=== PATIENT | female | born 1975 | race Caucasian/White ===

== ENCOUNTER 2025-02-02 12:41 | Emergency (ER) | payer BC, SELFPAY ==
[2025-02-02 12:42] VITALS: BMI 36.0
[2025-02-02 12:44] VITALS: BP 139/79
[2025-02-02 13:00] VITALS: BP 166/89
[2025-02-02 13:05] LABS: % Basophils 0.5 % (0-2); % Eosinophils 2.7 % (0-6); % Immature Granulocytes 0.4 % (0-0.5); % Lymphocytes 9.9 % (20.5-51.1); % Monocytes 2.8 % (1.7-9.3); % Neutrophils 83.7 % (42.2-75.2); Absolute Basophils 0.1 10^3/uL (0-0.2); Absolute Eosinophils 0.4 10^3/uL (0-0.7); Absolute Immature Granulocytes 0.1 10^3/uL (0-0.05); Absolute Lymphocytes 1.3 10^3/uL (1.2-3.4); Absolute Monocytes 0.4 10^3/uL (0.1-0.6); Absolute Neutrophils 11.3 10^3/uL (1.4-6.5); Hematocrit 37.4 % (37.0-47.0); Mean Corp Hgb Conc. 34.8 g/dL (33.0-37.0); Mean Corpuscular Hgb 29.9 pg (27.0-31.0); Nucleated Red Blood Cells % 0 %; Platelet Count 302 10^3/uL (130-400); Red Blood Cell Count 4.35 10^6/uL (4.20-5.40); Red Cell Dist. Width 12.7 % (11.5-14.5); White Blood Cell Count 13.5 10^3/uL (4.8-10.8)
--- NOTE | 2025-02-02 13:14 | ED.GENMED ---
History of Present Illness
<Anthony Kendall, DO - Last Filed: 02/03/25 08:22>
General
Chief Complaint: Chest Pain
Source: patient
Exam Limitations: none
Time Seen by Provider: 02/02/25 13:00
Nursing documentation reviewed up to this point in time: agreed with
History of Present Illness
History of Present Illness:
Note:
CHIEF COMPLAINT(S)
Pain upon inhalation.
HISTORY OF PRESENT ILLNESS
The patient is a 49-year-old female with a history of polycystic ovary syndrome (PCOS) who presents with pain localized to the left clavicle region, described as occurring during inhalation. The onset of symptoms was earlier today during transport
to the operating room for planned surgical intervention to repair a rotator cuff tear. Prior to symptom onset, a nerve block was administered to the patients right shoulder by an anesthesiologist at a surgical center. The patient reports the pain
began post-procedure and is associated with the inhalation activity.
MEDICATIONS
- Norethindrone, off-label, for control associated with PCOS.
- Spironolactone, for blood pressure management.
- Nebivolol, for hypertension.
PHYSICAL EXAM
General: no apparent distress, not acutely ill
Neck: supple. no meningeal signs. normal posterior pharynx
Heart: s1/s2 regular rate and rhythm, no murmur. equal radial
pulses.
HEENT: Pupils equal round reactive to light, EOMI
Lungs: no acute respiratory distress. clear bilaterally
Abdomen: normal bowel sounds. not tender. no CVAT
Neuro: alert and oriented. no focal neurological deficits cranial nerves II through XII intact
Skin: no rash
Psychiatric: well kept. interactive and cooperative
Extremities: no edema. no calf tenderness. negative homans. good distal pulses patient wearing sling
DIFFERENTIAL DIAGNOSIS
The Differential Diagnosis includes, in no particular order and is not limited to:
- Pulmonary embolism
- Pneumothorax
- Pleurisy
- Costochondritis
- Anxiety-related hyperventilation
- Musculoskeletal pain
- Diaphragmatic irritation
- Rib fracture
- Atelectasis
- Nerve block side effect
Note:
CARE-UPDATE
02/02/25 - 15:45
Patients chest symptoms showing improvement. D-dimer levels mildly elevated. Chest CT pending to rule out pulmonary embolism. Repeat troponin levels pending. If both results are negative, plan for discharge home with follow-up care with primary
physician.
<Jared Hood, DO - Last Filed: 02/02/25 17:35>
History of Present Illness
History of Present Illness:
Note:
CHIEF COMPLAINT(S)
Pain upon inhalation.
HISTORY OF PRESENT ILLNESS
The patient is a 49-year-old female with a history of polycystic ovary syndrome (PCOS) who presents with pain localized to the left clavicle region, described as occurring during inhalation. The onset of symptoms was earlier today during transport
to the operating room for planned surgical intervention to repair a rotator cuff tear. Prior to symptom onset, a nerve block was administered to the patients right shoulder by an anesthesiologist at a surgical center. The patient reports the pain
began post-procedure and is associated with the inhalation activity.
MEDICATIONS
- Norethindrone, off-label, for control associated with PCOS.
- Spironolactone, for blood pressure management.
- Nebivolol, for hypertension.
PHYSICAL EXAM
General: no apparent distress, not acutely ill
Neck: supple. no meningeal signs. normal posterior pharynx
Heart: s1/s2 regular rate and rhythm, no murmur. equal radial
pulses.
HEENT: Pupils equal round reactive to light, EOMI
Lungs: no acute respiratory distress. clear bilaterally
Abdomen: normal bowel sounds. not tender. no CVAT
Neuro: alert and oriented. no focal neurological deficits cranial nerves II through XII intact
Skin: no rash
Psychiatric: well kept. interactive and cooperative
Extremities: no edema. no calf tenderness. negative homans. good distal pulses patient wearing sling
DIFFERENTIAL DIAGNOSIS
The Differential Diagnosis includes, in no particular order and is not limited to:
- Pulmonary embolism
- Pneumothorax
- Pleurisy
- Costochondritis
- Anxiety-related hyperventilation
- Musculoskeletal pain
- Diaphragmatic irritation
- Rib fracture
- Atelectasis
- Nerve block side effect
Note:
CARE-UPDATE
02/02/25 - 15:45
Patients chest symptoms showing improvement. D-dimer levels mildly elevated. Chest CT pending to rule out pulmonary embolism. Repeat troponin levels pending. If both results are negative, plan for discharge home with follow-up care with primary
physician.
1731 CTA shows no evidence of PE repeat troponin negative. The patient does have what radiology questions as pneumonia on CT. She does have a mild white count. She has no cough or fevers but given her white count shared decision making with the
patient was performed and we will proceed with covering her with Augmentin. She will follow-up with her PCP as well as orthopedics. I did recommend a repeat chest x-ray upon the completion of her antibiotics
Phy Exam
<Anthony Kendall, DO - Last Filed: 02/03/25 08:22>
Physical Exam
Physical Exam:
.
Scores
<Anthony Kendall, DO - Last Filed: 02/03/25 08:22>
Heart Score for Chest Pain Patients
STEMI patient?: No
History: Slightly or Non-Suspicious
ECG: Normal
Age: >45 - <65 years
Risk Factors: No Risk Factors
Troponin: </= Normal Limit
Heart Score for Chest Pain Patients: 1
Heart Score Risk: 2.5% MACE over next 6 weeks
Course
<Anthony Kendall, DO - Last Filed: 02/03/25 08:22>
Orders/Labs/Results
Orders:
Orders
02/02/25 12:43
Electrocardiogram (*1) Urgent
Reason for Study: Chest Pain
Cardiac Monitoring- Treatment ONCE
EKG- Treatment ONCE
IV Insert/Care/Rem.- Treatment PRN
O2 Therapy [RESP] Urgent
Titrate/Wean O2 to maintain O2 sat greater than (%): 90
Special Instructions: Maintain sats >/=90%
Pulse Ox/spot Check [RESP] Urgent
Quantity: 1
Special Instructions: ON ROOM AIR
02/02/25 12:56
Complete Blood Count/With Diff Urgent
Comprehensive Metabolic Panel Urgent
Troponin I Urgent
02/02/25 13:11
D-Dimer Urgent
02/02/25 13:50
CT Chest PE Study Urgent
Comment:
Reason For Exam: short of breath, ddimer elevated
02/02/25 16:15
Troponin I Urgent
Abnormal Lab Results
02/02/25 02/02/25
12:56 13:11
WBC 13.5 H 10^3/uL
(4.8-10.8)
Abs Immat Gran (auto) 0.1 H 10^3/uL
(0-0.05)
Absolute Neuts (auto) 11.3 H 10^3/uL
(1.4-6.5)
Neutrophils % 83.7 H %
(42.2-75.2)
Lymphocytes % 9.9 L %
(20.5-51.1)
D-Dimer 1.16 H ug/mlFEU
(0.00-0.50)
Chloride 114 H mmol/L
(98-107)
Carbon Dioxide 17 L mmol/L
(22-30)
Glucose 110 H mg/dl
(70-99)
02/02/25 12:56
02/02/25 12:56
Vital Signs
Initial and Last Documented VS:
Initial Vital Signs
Temp Pulse Resp BP Pulse Ox
97.9 F 62 19 139/79 96
02/02/25 12:44 02/02/25 12:44 02/02/25 12:44 02/02/25 12:44 02/02/25 12:44
Last Documented Vital Signs
Temp Pulse Resp BP Pulse Ox
97.9 F 62 17 124/71 96
02/02/25 12:44 02/02/25 16:45 02/02/25 16:45 02/02/25 16:13 02/02/25 16:45
<Jared Hood, - Last Filed: 02/02/25 17:35>
Orders/Labs/Results
Orders:
Orders
02/02/25 12:43
Electrocardiogram (*1) Urgent
Reason for Study: Chest Pain
Cardiac Monitoring- Treatment ONCE
EKG- Treatment ONCE
IV Insert/Care/Rem.- Treatment PRN
O2 Therapy [RESP] Urgent
Titrate/Wean O2 to maintain O2 sat greater than (%): 90
Special Instructions: Maintain sats >/=90%
Pulse Ox/spot Check [RESP] Urgent
Quantity: 1
Special Instructions: ON ROOM AIR
02/02/25 12:56
Complete Blood Count/With Diff Urgent
Comprehensive Metabolic Panel Urgent
Troponin I Urgent
02/02/25 13:11
D-Dimer Urgent
02/02/25 13:50
CT Chest PE Study Urgent
Comment:
Reason For Exam: short of breath, ddimer elevated
02/02/25 16:15
Troponin I Urgent
Abnormal Lab Results
02/02/25 02/02/25
12:56 13:11
WBC 13.5 H 10^3/uL
(4.8-10.8)
Abs Immat Gran (auto) 0.1 H 10^3/uL
(0-0.05)
Absolute Neuts (auto) 11.3 H 10^3/uL
(1.4-6.5)
Neutrophils % 83.7 H %
(42.2-75.2)
Lymphocytes % 9.9 L %
(20.5-51.1)
D-Dimer 1.16 H ug/mlFEU
(0.00-0.50)
Chloride 114 H mmol/L
(98-107)
Carbon Dioxide 17 L mmol/L
(22-30)
Glucose 110 H mg/dl
(70-99)
02/02/25 12:56
02/02/25 12:56
Vital Signs
Initial and Last Documented VS:
Initial Vital Signs
Temp Pulse Resp BP Pulse Ox
97.9 F 62 19 139/79 96
02/02/25 12:44 02/02/25 12:44 02/02/25 12:44 02/02/25 12:44 02/02/25 12:44
Last Documented Vital Signs
Temp Pulse Resp BP Pulse Ox
97.9 F 62 17 124/71 96
02/02/25 12:44 02/02/25 16:45 02/02/25 16:45 02/02/25 16:13 02/02/25 16:45
<Anthony Kendall, DO - Last Filed: 02/03/25 08:22>
*Pulse Oximetry
SaO2: 97
Oxygen Mode of Delivery: Room air
<Jared Hood, DO - Last Filed: 02/02/25 17:35>
*Pulse Oximetry
Patient hypoxic: no
*Hand Glove Cleaner Interpretation
Rate: normal
Interpretation: normal
Rhythm: sinus
*Critical Care Note
Total Time (30-74mins, 75-104mins- exclusive of procedures): Not Applicable
Data Reviewed
Source: patient
Prescriptions/Medications Considered But Not Given:
Considered IV antibiotics with patient well-appearing and stable would like to go home
Further Testing Considered But Not Given:
Consider blood cultures but patient is afebrile
<Jared Hood, DO - Last Filed: 02/02/25 17:35>
Patient Management
Escalation/DeEscalation of care consider admission/obs:
Considered admission but not hypoxic. Okay for discharge and outpatient follow-up with PCP
<Jared Hood, DO - Last Filed: 02/02/25 17:35>
Update Note
Update Note:
Patient was provided a copy of her labs and CT report and advised to follow-up with her PCP
ED Attending Note
<Anthony Kendall, DO - Last Filed: 02/03/25 08:22>
-
Portions of this chart may have been created with voice recognition software.� Occasional wrong word or��sound alike� substitutions may have occurred due to the inherent limitations of voice recognition software.
Discharge Plan
Departure
Patient Disposition: Home (Routine Discharge)
Date of Disposition: 02/02/25
Time of Disposition: 17:33
Patient with high blood pressure during this ER visit?: No
Discharge Problem:
Atypical chest pain, Pneumonia
Instructions: Pneumonia in adults, Chest Pain PCP Follow Up
Prescriptions:
New
amoxicillin-pot clavulanate 875-125 mg tablet
1 tab PO BID Qty: 14 0RF
Referrals:
Claudy Bocanegra DO [Family Provider, [facility]]
Activity Restrictions/Additional Instructions:
Return immediately for worsening pain, shortness breath, palpitations, sweating, nausea, fevers, weakness of any kind, numbness, tingling or any other concerns.
Please have your doctor repeat your chest imaging after completion of your antibiotics to ensure the findings have cleared.
Interventions
Interventions:
*Risk Screen - Suicide Last Done: 02/02/25 12:44
*General Assessment Last Done: 02/02/25 12:44
*Neglect/Abuse Screening Last Done: 02/02/25 12:44
*ED- Fall Risk Assessment Last Done: 02/02/25 12:44
*ED COVID-19 Vaccine History Last Done: 02/02/25 12:44
*Nursing Disposition Last Done: 02/02/25 17:39
ED- Cardiac Assessment Last Done: 02/02/25 13:01
Discharge Date and Time
Discharge Date/Time: 02/02/25 17:40
Print Language: CITIZEN OF [place]
[2025-02-02 13:30] LABS: D-Dimer 1.16 ug/mlFEU (0.00-0.50)
[2025-02-02 13:36] LABS: ALT (SGPT) 18 U/L (0-35); AST (SGOT) 25 U/L (14-36); Albumin 4.1 g/dl (3.5-5.0); Alkaline Phosphatase 110 U/L (38-126); Blood Urea Nitrogen 13 mg/dl (7-17); Calcium 9.6 mg/dl (8.4-10.2); Carbon Dioxide 17 mmol/L (22-30); Chloride 114 mmol/L (98-107); Estimated Creatinine Clearance 106 ml/min; Glucose 110 mg/dl (70-99); Potassium 4.7 mmol/L (3.5-5.1); Sodium 138 mmol/L (135-145); Total Bilirubin 0.6 mg/dl (0.2-1.3); Troponin I < 0.012 ng/ml; eGFR > 60.00
[2025-02-02 14:00] VITALS: BP 126/76
[2025-02-02 15:00] VITALS: BP 136/76
[2025-02-02 16:13] VITALS: BP 124/71
[2025-02-02 16:47] LABS: Troponin I < 0.012 ng/ml
== END 2025-02-02 17:40 | disposition home or self-care (01) ==
LOC: EMR 12:41
PROVIDERS: EMERGENCY PHYSICIAN Emergency Medicine; FAMILY PHYSICIAN Family Medicine
DX: R07.89 Other chest pain (principal); J18.9 Pneumonia, unspecified organism; E28.2 Polycystic ovarian syndrome
CPT/HCPCS: 99284; 71275; 80053; 84484; 85025; 85379; 93005; Q9967